=== PATIENT | male | born 1950 | race African-American/Black ===

== ENCOUNTER 2018-05-26 01:31 | Inpatient (IN) | payer OTHER ==
[~2018-05-26] VITALS: Ht 172.7 cm; Wt 81.2 kg
[2018-05-26 01:34] VITALS: Ht 172.7 cm; Wt 81.2 kg
[2018-05-26 02:20] LABS: BASOPHIL % 0.6 % (0-2); PLATELET COUNT 159 x10^3mcL (130-400)
[2018-05-26 02:29] LABS: microscopic required? NO
[2018-05-26 02:34] LABS: UA SPECIFIC GRAVITY 1.015 (1.005-1.035); urine erythrocyte NEGATIVE (NEGATIVE)
[2018-05-26 03:12] LABS: FREE T4 0.75 ng/dL (0.76-1.46); FREE THYROXINE INDEX 2.1 ug/dL (1.4-4.5); T4(THYROXINE) 6.5 ug/dL (4.7-13.3)
[2018-05-26 03:32] LABS: CALCIUM 9.2 mg/dL (8.5-10.1); CARBON DIOXIDE 27.5 mmol/L (21-32); CHLORIDE SERUM 105 mmol/L (98-107); CREATININE SERUM 1.2 mg/dL (0.7-1.3); GFR1 > 60 mL/min; GLUCOSE SERUM 114 mg/dL (74-106); POTASSIUM SERUM 4.2 mmol/L (3.5-5.1); SODIUM SERUM 143 mmol/L (136-145)
[2018-05-26 03:40] LABS: ALKALINE PHOSPHATASE 102 U/L (46-116); ALT/SGPT 34 U/L (16-63); AST/SGOT 42 U/L (15-37); BILIRUBIN TOTAL 0.43 mg/dL (0.20-1.00); LIPASE 89 IU/L (73-393); TOTAL PROTEIN, SERUM 8.2 g/dL (6.4-8.2)
[2018-05-26 04:00] LABS: T3 TOTAL 1.17 ng/mL
[2018-05-26 04:01] LABS: TRIGLYCERIDES 601 mg/dL (<150)
[2018-05-26] MEDS ORDERED: LIPITOR40 MG (04:22)
[2018-05-26] MEDS ORDERED: MASON NATURAL1000 IU (04:23)
[2018-05-26 05:06] VITALS: BP 109/83
[2018-05-26 05:22] LABS: MAGNESIUM 2.5 mg/dL (1.8-2.4); PHOSPHOROUS 4.4 mg/dL (2.5-4.9)
[2018-05-26 05:28] LABS: CHOLESTEROL 343 mg/dL (<200); CHOLESTEROL/HDL RATIO 6.5; HDL CHOLESTEROL 53 mg/dL (40-60)
[2018-05-26 06:32] VITALS: BP 109/83
[2018-05-26 09:15] VITALS: BP 109/64
[2018-05-26 11:01] LABS: AMPHETAMINE QUAL UR NONE DETECTED (See below)
[2018-05-26 13:51] VITALS: BP 105/66
[2018-05-26 17:14] VITALS: BP 105/66
== END 2018-05-26 17:33 | disposition home or self-care (01) | DRG 392 ==
LOC: ED 01:31 → DU 04:25
PROVIDERS: Internal Medicine; Specialist
DX: K21.9 Gastro-esophageal reflux disease without esophagitis (principal); E78.5 Hyperlipidemia, unspecified; E03.9 Hypothyroidism, unspecified; F17.210 Nicotine dependence, cigarettes, uncomplicated; F12.10 Cannabis abuse, uncomplicated; Z68.27 Body mass index [BMI] 27.0-27.9, adult; Z66 Do not resuscitate
CPT/HCPCS: 83880; 84439; J7030